=== PATIENT | female | born 1995 | race Caucasian/White ===

== ENCOUNTER → 2017-07-10 | Outpatient (CLI) | payer OTHER | LOC: ULTRA 14:05 | DX: R10.2 Pelvic and perineal pain (principal) ==

== ENCOUNTER 2018-11-09 16:28 | Emergency (ER) | payer OTHER ==
[~2018-11-09] VITALS: Ht 172.7 cm; Wt 65.8 kg
[2018-11-09 17:11] LABS: ABSOLUTE NEUTROPHILS 4.3 thou/uL (1.4-8.2); BASOPHILS 0.5 % (0.0-2.0); EOSINOPHILS 0.3 % (0.0-3.0); HEMATOCRIT 43.7 % (37.0-47.0); HEMOGLOBIN 14.9 gm/dL (12.0-15.0); LYMPHOCYTES 27.6 % (24.0-44.0); MCH 29.4 pg (26.0-34.0); MCHC 34.2 g/dL (28.0-37.0); MCV 85.8 fL (80.0-100.0); MONOCYTES 10.6 % (1.0-8.0); PLATELET COUNT 328 thou/uL (150-400); RBC 5.09 mil/uL (4.20-5.00); RDW 11.7 % (10.5-14.5); WBC 7.1 thou/uL (4.0-11.0)
[2018-11-09 17:15] LABS: CALCIUM 10.4 mg/dL (8.5-10.1); CREATININE 0.7 mg/dL (0.6-1.0); POTASSIUM 4.2 mmol/L (3.5-5.1)
[2018-11-09 17:22] LABS: ALBUMIN 3.9 g/dL (3.4-5.0); TOTAL BILIRUBIN 0.4 mg/dL (<0.1-1.0); TOTAL PROTEIN 7.6 g/dL (6.4-8.2)
[2018-11-09 17:37] LABS: AMP/METHAMP Negative (Negative); BARBITURATES Negative (Negative); BENZODIAZEPINES Negative (Negative); COCAINE Negative (Negative); METHADONE Negative (Negative); OPIATES Negative (Negative); PCP Negative (Negative)
[2018-11-09] MEDS ORDERED: METHIMAZOLE10 MG PO (20:16)
[2018-11-09] MEDS ORDERED: PROPRANOLOL 1010 MG PO (20:16)
[2018-11-09 20:38] VITALS: BP 125/77
--- NOTE | 2018-11-10 13:38 | EKG ---
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
--- NOTE | 2018-11-10 13:41 | EKG ---
[address] [address] ELECTROCARDIOGRAM REPORT Name: XENAI PUCKETT MARIE Room #: DEP 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
== END 2018-11-09 20:38 | disposition home or self-care (01) ==
LOC: ER 16:28
PROVIDERS: Emergency Medicine
DX: E05.90 Thyrotoxicosis, unspecified without thyrotoxic crisis or storm (principal); R00.0 Tachycardia, unspecified; R42 Dizziness and giddiness

== ENCOUNTER → 2018-11-28 | Outpatient (CLI) | payer OTHER ==
[~2018-11-28] MED LIST: METHIMAZOLE10 MG PO; PROPRANOLOL 1010 MG PO
== END ==
LOC: ULTRA 11-21 10:56
DX: E05.90 Thyrotoxicosis, unspecified without thyrotoxic crisis or storm (principal); R59.0 Localized enlarged lymph nodes

== ENCOUNTER → 2020-10-23 | Outpatient (CLI) | payer OTHER | LOC: ULTRA 10-22 15:33 | PROVIDERS: ATTEND Obstetrics & Gynecology | DX: R10.2 Pelvic and perineal pain (principal) ==